=== PATIENT | female | born 1980 | race African-American/Black ===

== ENCOUNTER 2021-06-16 08:47 | Emergency (ER) | payer OTHER ==
[2021-06-16 09:21] VITALS: BP 102/74; PULSE 61; TEMP 97.6; BMI 29.8
[2021-06-16] MEDS ORDERED: KETOROLAC TROMETHAMINE 30 MG/1 ML VIAL IM ONE (09:39)
[2021-06-16] MEDS ORDERED: diazePAM 5 MG TABLET PO ONE (09:39)
[2021-06-16] MEDS ORDERED: IBUPROFEN 600 MG TABLET (FP) PO ONE ×2 (11:34→11:35)
== END 2021-06-16 13:20 | disposition home or self-care (01) ==
LOC: JER 08:47 → JERFT 08:47
DX: M79.10 Myalgia, unspecified site (principal); V43.52XA Car driver injured in collision with other type car in traffic accident, initial encounter
CPT/HCPCS: 71046-TC-FY; 71101-TC-RT-FY; 87086; 93005; 93010; 99285-25